=== PATIENT | male | born 1980 | race Two or more races ===

== ENCOUNTER 2019-03-27 17:03 | Emergency (ER) | payer OTHER ==
[~2019-03-27] VITALS: Ht 182.9 cm; Wt 95.3 kg
[2019-03-27] MEDS ORDERED: MORPHINE SULFATE INJECTION 1 ML ONE (18:53)
[2019-03-27] MEDS ORDERED: ONDANSETRON HCL 4 MG/2 ML VIAL ONE (18:53)
[2019-03-27] MEDS ORDERED: MORPHINE SULFATE 4 MG/ML SYR/VIAL IV ONE (19:15)
[2019-03-27] MEDS ORDERED: ONDANSETRON HCL 4 MG/2 ML VIAL IV ONE (19:15)
[2019-03-27 21:00] VITALS: BP 129/66
[2019-03-27] MEDS ORDERED: ACETAMINOPHEN 325 MG TAB PO ONE (21:00)
== END 2019-03-27 22:07 ==
LOC: EEVIPCON 17:03 → ER 17:03
DX: M81.8 Other osteoporosis without current pathological fracture (principal); M89.712 Major osseous defect, left shoulder region
CPT/HCPCS: 73030; 73200; 96374; 96375; 99284; J2270; J2405; J7030

== ENCOUNTER → 2019-10-22 | Emergency (ER) | payer OTHER ==
[~2019-10-22] MED LIST: IBUPROFEN 800 MG TAB PO ONE
[2019-10-22 22:14] VITALS: BP 148/98
== END | disposition home or self-care (01) ==
LOC: EDBD 22:07 → EDUNIT# 22:07 → EEVIPCON 22:07 → ER 22:11
DX: S62.112A Displaced fracture of triquetrum [cuneiform] bone, left wrist, initial encounter for closed fracture (principal); W22.01XA Walked into wall, initial encounter; Y93.89 Activity, other specified; Y92.89 Other specified places as the place of occurrence of the external cause; Y99.0 Civilian activity done for income or pay
CPT/HCPCS: 29125; 73110; 73130

== ENCOUNTER 2019-11-20 22:28 | Inpatient (IN) | payer OTHER ==
[~2019-11-20] VITALS: Ht 185.4 cm; Wt 91.1 kg
[2019-11-21 01:47] LABS: Basophils # (auto) 0.1 10 ^3/uL (0-0.2); Basophils % (auto) 0.7 % (0.0-2.0); Eosinophils # (auto) 0.3 10 ^3/uL (0-0.8); Eosinophils % (auto) 3.4 % (0.0-7.0); Hematocrit 37.5 % (41.0-53.0); Hemoglobin 12.9 g/dL (13.5-17.5); Lymphocytes # (auto) 2.7 10 ^3/uL (0.4-5.4); Lymphocytes % (auto) 27.7 % (10.0-50.0); Mean Corpuscular Hemoglobin 28.4 pg (28.0-32.0); Mean Corpuscular Hgb Conc. 34.3 g/dL (32.0-36.0); Mean Corpuscular Volume 82.7 fL (80.0-100.0); Monocytes # (auto) 1.2 10 ^3/uL (0-1.3); Monocytes % (auto) 12.3 % (0.0-12.0); Neutrophils # (auto) 5.4 10 ^3/uL (1.6-8.6); Neutrophils % (auto) 55.9 % (37.0-80.0); Nucleated Red Blood Cells % 0.1 %; Platelet Count (auto) 199 10^3/uL (140-450); Red Blood Cells 4.53 10^6/uL (4.5-5.90); Red Cell Distribution Width 13.6 % (11.8-14.3); White Blood Cell 9.7 10^3/uL (4.4-10.8)
[2019-11-21 02:07] LABS: Albumin 4.2 g/dL (3.4-5.0)
[2019-11-21 02:10] LABS: Bilirubin, Total 0.9 mg/dL (0.2-1.0); Total Protein 7.4 g/dL (6.4-8.2)
[2019-11-21] MEDS ORDERED: ONDANSETRON HCL 4 MG/2 ML VIAL IV ONE (03:00)
[2019-11-21] MEDS ORDERED: MORPHINE SULFATE 4 MG/ML SYR/VIAL IV ONE (03:00)
[2019-11-21] MEDS ORDERED: SODIUM CHLORIDE 0.9% 1,000 ML IV ONE (04:15)
[2019-11-21] MEDS ORDERED: ONDANSETRON HCL 4 MG/2 ML VIAL IV PRN (04:15)
[2019-11-21 06:07] LABS: Basophils # (auto) 0 10 ^3/uL (0-0.2); Basophils % (auto) 0.6 % (0.0-2.0); Eosinophils # (auto) 0.3 10 ^3/uL (0-0.8); Hematocrit 33.6 % (41.0-53.0); Hemoglobin 11.5 g/dL (13.5-17.5); Lymphocytes % (auto) 28.8 % (10.0-50.0); Mean Corpuscular Hemoglobin 28.4 pg (28.0-32.0); Mean Corpuscular Hgb Conc. 34.3 g/dL (32.0-36.0); Mean Corpuscular Volume 82.7 fL (80.0-100.0); Monocytes # (auto) 0.9 10 ^3/uL (0-1.3); Monocytes % (auto) 12.8 % (0.0-12.0); Neutrophils # (auto) 3.8 10 ^3/uL (1.6-8.6); Neutrophils % (auto) 53.8 % (37.0-80.0); Nucleated Red Blood Cells % 0.1 %; Platelet Count (auto) 160 10^3/uL (140-450); Red Blood Cells 4.07 10^6/uL (4.5-5.90); Red Cell Distribution Width 13.5 % (11.8-14.3); White Blood Cell 7.1 10^3/uL (4.4-10.8)
[2019-11-21 06:32] LABS: Albumin 3.7 g/dL (3.4-5.0); Calcium 8.3 mg/dL (8.5-10.1); Potassium 4.1 mmol/L (3.5-5.1)
[2019-11-21 06:35] LABS: BUN/Creatinine Ratio 15.4; Bilirubin, Total 0.8 mg/dL (0.2-1.0); Total Protein 6.3 g/dL (6.4-8.2)
[2019-11-21] MEDS: GABAPENTIN 300 MG CAP PO SCH ×2 (10:00→21:55)
[2019-11-21] MEDS: PANTOPRAZOLE 40 MG/10 ML VIAL INJ IV SCH ×2 (10:00→21:53)
[2019-11-21 13:00] VITALS: BP 112/58
[2019-11-21 17:00] VITALS: BP 126/68
[2019-11-21 20:00] VITALS: BP 100/51
[2019-11-21 21:12] LABS: INR 1.03 (0.9-1.15); Partial Thromboplastin Time 26.5 sec (23.0-31.2)
[2019-11-21 21:57] VITALS: BP 100/51
[2019-11-22 05:12] VITALS: BP 96/49
[2019-11-22 05:56] LABS: Basophils # (auto) 0 10 ^3/uL (0-0.2); Basophils % (auto) 0.7 % (0.0-2.0); Eosinophils # (auto) 0.4 10 ^3/uL (0-0.8); Eosinophils % (auto) 6.6 % (0.0-7.0); Hematocrit 32.8 % (41.0-53.0); Lymphocytes # (auto) 1.6 10 ^3/uL (0.4-5.4); Lymphocytes % (auto) 28.8 % (10.0-50.0); Mean Corpuscular Hemoglobin 27.9 pg (28.0-32.0); Mean Corpuscular Hgb Conc. 33.5 g/dL (32.0-36.0); Mean Corpuscular Volume 83.3 fL (80.0-100.0); Monocytes # (auto) 0.7 10 ^3/uL (0-1.3); Monocytes % (auto) 13.1 % (0.0-12.0); Neutrophils # (auto) 2.8 10 ^3/uL (1.6-8.6); Neutrophils % (auto) 50.8 % (37.0-80.0); Nucleated Red Blood Cells % 0.1 %; Platelet Count (auto) 147 10^3/uL (140-450); Red Blood Cells 3.93 10^6/uL (4.5-5.90); Red Cell Distribution Width 13.9 % (11.8-14.3); White Blood Cell 5.6 10^3/uL (4.4-10.8)
[2019-11-22 08:20] VITALS: BP 97/53
[2019-11-22 09:00] VITALS: BP 97/53
[2019-11-22] MEDS: PANTOPRAZOLE 40 MG/10 ML VIAL INJ IV SCH ×3 (10:00→22:11)
[2019-11-22] MEDS: GABAPENTIN 300 MG CAP PO SCH ×2 (11:04→22:12)
[2019-11-22 17:00] VITALS: BP 98/63
[2019-11-22] MEDS ORDERED: GOLYTELY 4L KIT PO ONE (17:00)
[2019-11-22 21:59] VITALS: BP 95/62
[2019-11-23 04:56] VITALS: BP 102/62
[2019-11-23] MEDS ORDERED: GOLYTELY 4L KIT PO ONE (06:00)
[2019-11-23] MEDS ORDERED: SODIUM CHLORIDE LOCK 10 ML ONE ×2 (08:49→09:15)
[2019-11-23] MEDS ORDERED: diphenhdrAMINE HCL 50 MG/1 ML VL ONE ×2 (08:50→09:14)
[2019-11-23 09:00] VITALS: BP 107/60
[2019-11-23] MEDS ORDERED: NALOXONE HCL 0.4 MG/ML VIAL ONE (09:02)
[2019-11-23] MEDS ORDERED: FLUMAZENIL 0.1 MG/ML INJ 10ML MDV IV ONE (09:02)
[2019-11-23] MEDS: fentaNYL CITRATE 100 MCG/2 ML VL ONE ×3 (09:04→09:13)
[2019-11-23] MEDS: MIDAZOLAM HCL 5 MG/ML-1ML VIAL ONE ×3 (09:04→09:13)
[2019-11-23] MEDS ORDERED: MIDAZOLAM HCL 5 MG/ML-1ML VIAL ONE (09:13)
[2019-11-23] MEDS ORDERED: fentaNYL CITRATE 100 MCG/2 ML VL ONE (09:14)
[2019-11-23] MEDS: PANTOPRAZOLE 40 MG/10 ML VIAL INJ IV SCH ×2 (10:13→22:00)
[2019-11-23] MEDS: GABAPENTIN 300 MG CAP PO SCH ×2 (10:13→22:44)
[2019-11-23 13:00] VITALS: BP 96/50
[2019-11-23 17:00] VITALS: BP 97/54
[2019-11-23 20:00] VITALS: BP 95/54
[2019-11-23 22:00] VITALS: BP 94/54
[2019-11-23] MEDS: MESALAMINE 4 GM/60 ML RC PR SCH (22:00)
[2019-11-24 05:00] VITALS: BP 103/53
[2019-11-24 09:00] VITALS: BP 102/62
[2019-11-24] MEDS: GABAPENTIN 300 MG CAP PO SCH ×2 (09:53→22:00)
[2019-11-24] MEDS: PANTOPRAZOLE 40 MG/10 ML VIAL INJ IV SCH ×2 (09:53→22:00)
[2019-11-24 12:54] VITALS: BP 113/69
[2019-11-24 17:09] VITALS: BP 119/68
[2019-11-24 20:00] VITALS: BP 112/71
[2019-11-24 22:00] VITALS: BP 112/71
[2019-11-24] MEDS: MESALAMINE 4 GM/60 ML RC PR SCH (22:00)
[2019-11-25 05:00] VITALS: BP 99/61
[2019-11-25 09:11] VITALS: BP 115/69
[2019-11-25] MEDS: PANTOPRAZOLE 40 MG/10 ML VIAL INJ IV SCH ×2 (10:00→22:00)
[2019-11-25] MEDS: GABAPENTIN 300 MG CAP PO SCH (10:19)
[2019-11-25 13:00] VITALS: BP 108/70
[2019-11-25 16:53] VITALS: BP 110/63
[2019-11-25 22:00] VITALS: BP 112/76
[2019-11-25] MEDS: MESALAMINE 4 GM/60 ML RC PR SCH (22:00)
[2019-11-25] MEDS: GABAPENTIN 400 MG CAP PO SCH (22:37)
[2019-11-26 05:00] VITALS: BP 101/62
[2019-11-26] MEDS: GABAPENTIN 400 MG CAP PO SCH ×2 (08:58→22:03)
[2019-11-26] MEDS: PANTOPRAZOLE 40 MG/10 ML VIAL INJ IV SCH ×2 (08:58→22:00)
[2019-11-26 09:00] VITALS: BP 109/84
[2019-11-26 13:00] VITALS: BP 112/75
[2019-11-26 17:00] VITALS: BP 134/87
[2019-11-26 22:00] VITALS: BP 105/63
[2019-11-26] MEDS: MESALAMINE 4 GM/60 ML RC PR SCH (22:00)
[2019-11-27 05:00] VITALS: BP 104/60
[2019-11-27 08:00] VITALS: BP 95/55
[2019-11-27 08:46] VITALS: BP 95/55
[2019-11-27] MEDS: PANTOPRAZOLE 40 MG/10 ML VIAL INJ IV SCH ×2 (09:45→22:00)
[2019-11-27] MEDS: GABAPENTIN 400 MG CAP PO SCH ×2 (09:46→22:40)
[2019-11-27 12:40] VITALS: BP 109/67
[2019-11-27 16:43] VITALS: BP 101/66
[2019-11-27] MEDS ORDERED: NAPROXEN 500 MG TAB PO PRN (17:45)
[2019-11-27] MEDS: MESALAMINE 4 GM/60 ML RC PR SCH (22:00)
[2019-11-27 22:06] VITALS: BP 103/58
[2019-11-27] MEDS: predniSONE 20 MG TAB PO SCH (22:40)
[2019-11-28 05:00] VITALS: BP 99/63
[2019-11-28 09:00] VITALS: BP 114/72
[2019-11-28] MEDS: PANTOPRAZOLE 40 MG/10 ML VIAL INJ IV SCH ×2 (10:00→20:43)
[2019-11-28] MEDS: predniSONE 20 MG TAB PO SCH ×2 (10:22→20:42)
[2019-11-28] MEDS: GABAPENTIN 400 MG CAP PO SCH ×2 (10:23→20:43)
[2019-11-28 13:00] VITALS: BP 105/66
[2019-11-28 17:00] VITALS: BP 118/62
[2019-11-28] MEDS: MESALAMINE 4 GM/60 ML RC PR SCH (20:43)
== END 2019-11-28 21:00 | DRG 395 ==
LOC: ER 22:28 → EEVIPCON 22:28 → OVERFLOW 22:29 → CENTRAL 11-21 07:58 → WEST WING 11-23 18:18
PROVIDERS: ADMIT Internal Medicine; ATTEND Internal Medicine
PROC: 0DBP8ZX Excision of Rectum, Via Natural or Artificial Opening Endoscopic, Diagnostic (ICD-10-PCS; principal; 2019-11-23 09:00)
DX: K62.6 Ulcer of anus and rectum (principal); F17.210 Nicotine dependence, cigarettes, uncomplicated; G89.4 Chronic pain syndrome; F15.90 Other stimulant use, unspecified, uncomplicated
CPT/HCPCS: 36415; 73030; 74176; 80053; 82150; 82378; 83690; 85025; 85610; 85730; 87081; 96361; 96374; 96375; C9113; G0378; J2250; J2405